=== PATIENT | male | born 1980 | race Caucasian/White ===

== ENCOUNTER 2016-12-08 19:42 | Observation (INO) ==
[2016-12-08] MEDS ORDERED: Ondansetron 4 MG/2 ML VIAL IVP ONE (20:26)
[2016-12-08] MEDS ORDERED: *HR* HYDROmorphone (PF) 1 MG/ML SYRINGE IVP ONE ×3 (20:26→23:11)
[2016-12-08] MEDS ORDERED: 0.9 % Sodium Chloride 1,000 ML IVC ONE ×2 (20:26→23:11)
[2016-12-08 21:21] LABS: Basophils # 0.1 K/mcL (0.0-0.2); Basophils % 0.7 %; Eosinophils # 0.1 K/mcL (0.0-0.6); Eosinophils % 0.3 %; Hematocrit 44.5 % (37.5-50.1); Hemoglobin 15.6 g/dL (12.9-16.9); Immature Granulocytes % 0.4 % (0-4); Lymphocytes # 1.4 K/mcL (0.6-4.6); Lymphocytes % 8.7 %; Mean Corpuscular HGB Conc 35.1 g/dL (31.6-35.5); Mean Corpuscular Hemoglobin 30.5 pg (28.0-33.3); Mean Corpuscular Volume 87.1 fL (83.0-100.0); Mean Platelet Volume 9.3 fL (9.4-12.4); Monocytes # 0.8 K/mcL (0.0-1.3); Monocytes % 4.9 %; Neutrophils # 13.4 K/mcL (1.6-8.9); Platelet Count 332 K/mcL (140-400); Red Blood Count 5.11 M/mcL (4.19-5.50); Red Cell Distribution Width 12.2 % (11.5-14.5)
--- NOTE | 2016-12-08 21:31 | Emergency Department Note ---
Disposition Clinical Impression: Acute cholecystitis due to biliary calculus, Right upper quadrant abdominal pain Nausea & vomiting Qualifiers: Vomiting type: unspecified Vomiting Intractability: non-intractable Qualified Code(s): R11.2 - Nausea with vomiting, unspecified Disposition: Admitted As Inpatient Condition: Fair Referrals: Torey Ingram CNP [Primary Care Provider] - Forms: ED Satisfaction Letter, Work/School Release Time of Disposition: 23:34 Abdominal Pain HPI - General Chief Complaint: ED Abdominal Pain Stated Complaint: "Abd Pain" Time Seen by Provider: 12/08/16 20:13 Source: patient Nursing Notes Reviewed: Yes Vital Signs Reviewed: Yes - History of Present Illness HPI Narrative: Patient he-year-old male complains of severe onset of right upper quadrant abdominal pain 8 hours ago. Patient states she has never had pain like this before. Patient states she still has appendix, gallbladder. Patient states she has never had kidney stones. Patient denies any dysuria. Patient states he he had pain and nausea before he ate. Pain Scale: 2 - Related Data Previous Rx's Medication Instructions Recorded Amoxicillin [Amoxil] 500 mg PO Q8HR #30 capsule 05/19/16 Guaifenesin/Dm/Pseudoephedrine 1 tab PO Q6HR PRN #30 tablet 05/19/16 [Capmist Dm Tablet] Allergies Allergy/AdvReac Type Severity Reaction Status Date / Time No Known Allergies Allergy Verified 12/08/16 19:44 Review of Systems: Vital Signs Temperature 97.6 F 12/08/16 19:45 Pulse Rate 55 12/08/16 19:45 Respiratory Rate 16 12/08/16 19:45 Blood Pressure 208/125 12/08/16 19:45 O2 Sat by Pulse Oximetry 99 12/08/16 19:45 Temperature 97.6 F 12/08/16 19:45 Pulse Rate 56 12/08/16 21:20 Respiratory Rate 22 12/08/16 21:20 Blood Pressure 175/111 12/08/16 21:20 O2 Sat by Pulse Oximetry 92 12/08/16 21:20 Oxygen Delivery Oxygen Delivery Room Air All systems ED: reviewed and negative except as stated. Review of Systems: As Per HPI Constitutional: Denies: fever, chills, weakness ENT ED: Denies: congestion Cardiovascular: Denies: chest pain, palpitations, dyspnea on exertion Respiratory: Denies: cough, dyspnea, hemoptysis Gastrointestinal: Reports: abdominal pain, nausea, vomiting. Denies: diarrhea Genitourinary: Denies: urgency, dysuria Musculoskeletal: Denies: back pain Integumentary: Denies: rash Neurological: Denies: headache Psychiatric: Denies: anxiety Endocrine: Denies: fatigue Abdominal Pain PMH - Past Medical History Medical history: Reports: kidney stones Male Surgical History: Reports: non-contributory Psychiatric history: Reports: no psych history - Social History Smoking status: Never smoker Alcohol use: Reports: none Drug use: Reports: none Physical Exam Vital Signs Temperature 97.6 F 12/08/16 19:45 Pulse Rate 55 12/08/16 19:45 Respiratory Rate 16 12/08/16 19:45 Blood Pressure 208/125 12/08/16 19:45 O2 Sat by Pulse Oximetry 99 12/08/16 19:45 Temperature 97.6 F 12/08/16 19:45 Pulse Rate 56 12/08/16 21:20 Respiratory Rate 22 12/08/16 21:20 Blood Pressure 175/111 12/08/16 21:20 O2 Sat by Pulse Oximetry 92 12/08/16 21:20 Oxygen Delivery Oxygen Delivery Room Air 36-year-old male who is alert and oriented 3. Patient does not appear to be in any distress at this time. Patient is nontoxic appearing. - General Limitations: no limitations General appearance: alert, in no apparent distress - Head Head exam: atraumatic, normocephalic, normal inspection - Eye Eye exam: Present: normal appearance, PERRL, EOMI - ENT ENT exam: normal exam, normal oropharynx, mucous membranes moist Course Vital Signs Temperature 97.6 F 12/08/16 19:45 Pulse Rate 55 12/08/16 19:45 Respiratory Rate 16 12/08/16 19:45 Blood Pressure 208/125 12/08/16 19:45 O2 Sat by Pulse Oximetry 99 12/08/16 19:45 Temperature 97.6 F 12/08/16 19:45 Pulse Rate 64 12/08/16 23:21 Respiratory Rate 22 12/08/16 23:21 Blood Pressure 182/116 12/08/16 23:21 O2 Sat by Pulse Oximetry 93 12/08/16 23:21 Oxygen Delivery Oxygen Delivery Room Air Abdominal Pain - MDM Narrative Medical decision making narrative: Patient with right upper quadrant pain concerning for possible cholecystitis, pancreatitis, choledocholithiasis. Patient received 2 L IV normal saline, 3 doses of 1 mg Dilaudid IV for pain. Each dose brings patient's pain down significantly, the patient's pain goes back up to a 7/10 about 45 minutes to an hour. Labs show elevated WBC at 15.7. Patient's symptoms of acute onset nausea, vomiting, right upper quadrant abdominal pain, CT scan results of an enlarged gallbladder with gallbladder wall thickening and pericholecystic fluid with visible stones in gallbladder, patient has acute cholecystitis. General surgery was consulted. Dr. roberts of general surgery has accepted patient to his service. Patient understands and agrees to treatment plan and accepts admission. Patient started on Zosyn 3.375 grams IV. Patient will continue to have pain control. IV hydration. Patient has been nothing by mouth during his stay in the ED. - Lab Data Lab results reviewed: Yes I reviewed the patient's lab results. Lab results narrative: Short CBC 12/08/16 Range/Units 20:46 WBC 15.7 H (4.3-11.1) K/mcL Hgb 15.6 (12.9-16.9) g/dL Hct 44.5 (37.5-50.1) % Plt Count 332 (140-400) K/mcL Neutrophils # 13.4 H (1.6-8.9) K/mcL BMP 12/08/16 Range/Units 20:46 Sodium 137 (136-145) mEq/L Potassium 3.4 L (3.5-4.5) mEq/L Chloride 97 L (98-109) mEq/L Carbon Dioxide 27 (19-29) mEq/L BUN 13 (8-26) mg/dL Creatinine 1.14 (0.72-1.25) mg/dL Glucose 108 H (70-99) mg/dL Calcium 10.1 (8.6-10.8) mg/dL Liver Function 12/08/16 Range/Units 20:46 Total Bilirubin 1.4 H (0.2-1.2) mg/dL Direct Bilirubin 0.5 (0.0-0.5) mg/dL AST 28 (5-34) Units/L ALT 35 (0-55) Units/L Alkaline Phosphatase 67 (38-126) Units/L Albumin 4.3 (3.5-5.0) g/dL Urine 12/08/16 Range/Units 22:23 Urine Color Yellow (Yellow) Urine Clarity Cloudy A (Clear) Urine pH 6.5 (5.0-8.0) pH Units Ur Specific Brook 1.016 (1.010-1.025) Urine Protein Negative (Neg-Trace) mg/dL Urine Glucose (UA) Normal (Normal) mg/dL Result diagrams: 12/08/16 20:46 12/08/16 20:46 Lab Results 12/08/16 12/08/16 12/08/16 Range/Units 20:46 20:46 22:23 WBC 15.7 H (4.3-11.1) K/mcL RBC 5.11 (4.19-5.50) M/mcL Hgb 15.6 (12.9-16.9) g/dL Hct 44.5 (37.5-50.1) % MCV 87.1 (83.0-100.0) fL MCH 30.5 (28.0-33.3) pg MCHC 35.1 (31.6-35.5) g/dL RDW 12.2 (11.5-14.5) % Plt Count 332 (140-400) K/mcL MPV 9.3 L (9.4-12.4) fL Immature Gran % 0.4 (0-4) % Seg Neutrophils % 85.0 % Lymphocytes % 8.7 % Monocytes % 4.9 % Eosinophils % 0.3 % Basophils % 0.7 % Neutrophils # 13.4 H (1.6-8.9) K/mcL Lymphocytes # 1.4 (0.6-4.6) K/mcL Monocytes # 0.8 (0.0-1.3) K/mcL Eosinophils # 0.1 (0.0-0.6) K/mcL Basophils # 0.1 (0.0-0.2) K/mcL Sodium 137 (136-145) mEq/L Potassium 3.4 L (3.5-4.5) mEq/L Chloride 97 L (98-109) mEq/L Carbon Dioxide 27 (19-29) mEq/L BUN 13 (8-26) mg/dL Creatinine 1.14 (0.72-1.25) mg/dL Est GFR ( Amer) > 60 (> 60) Est GFR (Non-Af Amer) > 60 (> 60) BUN/Creatinine Ratio 11 (6-26) Glucose 108 H (70-99) mg/dL Calculated Osmolality 285 (280-300) Calcium 10.1 (8.6-10.8) mg/dL Total Bilirubin 1.4 H (0.2-1.2) mg/dL Direct Bilirubin 0.5 (0.0-0.5) mg/dL Indirect Bilirubin 0.9 (0.0-1.2) mg/dL AST 28 (5-34) Units/L ALT 35 (0-55) Units/L Alkaline Phosphatase 67 (38-126) Units/L Serum Total Protein 7.7 (6.0-8.3) g/dL Albumin 4.3 (3.5-5.0) g/dL Globulin 3.4 (2.4-3.5) g/dL Albumin/Globulin Ratio 1.3 (1.1-2.2) Lipase 12 (8-78) Units/L Urine Color Yellow (Yellow) Urine Clarity Cloudy A (Clear) Urine pH 6.5 (5.0-8.0) pH Units Ur Specific [place] 1.016 (1.010-1.025) Urine Protein Negative (Neg-Trace) mg/dL Urine Glucose (UA) Normal (Normal) mg/dL Urine Ketones Negative (Negative) mg/dL Urine Blood Negative (Negative) Urine Nitrite Negative (Negative) Urine Bilirubin Negative (Negative) Urine Urobilinogen Normal (Normal) mg/dL Ur Leukocyte Esterase Negative (Negative) Urine Microscopic RBC 0-3 (0-3) per hpf Urine Microscopic WBC 0-3 (0-3) per hpf Ur Squamous Epith Cells None Seen (None-Few) per lpf Urine Bacteria None Seen (None-Few) per hpf Hyaline Casts None Seen (None-Few) per lpf Ur Culture Indicated? NO (NO) - Radiology Data Radiology results reviewed: Yes I reviewed the patient's radiology results. Chest X-Ray 12/08/16 20:14 IMPRESSION: No definite acute disease on this study obtained at low lung volumes. D/ / Francesco Sosa MD / Francesco Sosa MD Interpreting Provider: Francesco Sosa MD Abdomen/Pelvis CT 12/08/16 20:29 IMPRESSION: Cholelithiasis and acute cholecystitis. D/ / Chang Mc MD / Chang Mc MD Interpreting Provider: Chang Mc MD Attestation Statement - Attestation Attestation: I examined this patient and my medical decision-making was reviewed with the Resident Physician. I agree with the documented findings, disposition and treatment plan as described except to the extent set forth below. Findings of acute cholecystitis on CT. Discussed case with general surgery. We will start Zosyn and admitted to general surgery. No comorbidities. Vital signs stable to dominant admission.
[2016-12-08 21:39] LABS: Alanine Aminotransferase 35 Units/L (0-55); Albumin 4.3 g/dL (3.5-5.0); Albumin/Globulin Ratio 1.3 (1.1-2.2); Alkaline Phosphatase 67 Units/L (38-126); Aspartate Amino Transferase 28 Units/L (5-34); BUN/Creatinine Ratio 11 (6-26); Blood Urea Nitrogen 13 mg/dL (8-26); Calcium 10.1 mg/dL (8.6-10.8); Carbon Dioxide 27 mEq/L (19-29); Chloride 97 mEq/L (98-109); Globulin 3.4 g/dL (2.4-3.5); Glucose 108 mg/dL (70-99); Lipase 12 Units/L (8-78); Osmolality,Calculated 285 (280-300); Potassium 3.4 mEq/L (3.5-4.5); Sodium 137 mEq/L (136-145); Total Protein 7.7 g/dL (6.0-8.3); eGFR For African Americans > 60 (> 60); eGFR For Non-African Americans > 60 (> 60)
[2016-12-08 22:26] LABS: Bilirubin,Direct 0.5 mg/dL (0.0-0.5)
[2016-12-08 22:30] LABS: Bilirubin,Urine Negative (Negative); Blood,Urine Negative (Negative); Clarity,Urine Cloudy (Clear); Color,Urine Yellow (Yellow); Glucose,Urine (UA) Normal (Normal); Ketones,Urine Negative (Negative); Leukocyte Esterase,Urine Negative (Negative); Nitrite,Urine Negative (Negative); PH,Urine 6.5 pH Units (5.0-8.0); Protein,Urine Negative (Neg-Trace); Specific Gravity,Urine 1.016 (1.010-1.025); Urobilinogen,Urine Normal (Normal)
[2016-12-08 22:33] LABS: Bacteria,Urine None Seen per hpf (None-Few); Hyaline Casts,Urine None Seen per lpf (None-Few); RBC,Urine 0-3 per hpf (0-3); Squamous Epithelial Cell,Urine None Seen per lpf (None-Few); WBC,Urine 0-3 per hpf (0-3)
[2016-12-08 22:47] LABS: Bilirubin,Indirect 0.9 mg/dL (0.0-1.2); Bilirubin,Total 1.4 mg/dL (0.2-1.2)
[2016-12-08] MEDS ORDERED: Piperacillin/Tazobactam 3.375 GM in D5% in Water (Mini-Bag+) 100 ML IVPB ONE (23:17)
[2016-12-09] MEDS ORDERED: Ondansetron 4 MG/2 ML VIAL IVP PRN ×2 (00:39→14:27)
[2016-12-09] MEDS ORDERED: Ringers Solution, Lactated 1,000 ML IVC SCH ×2 (00:45→14:27)
[2016-12-09] MEDS: *HR* HYDROmorphone 2 MG/ML SYRINGE IVP PRN ×2 (01:13→07:29)
[2016-12-09] MEDS ORDERED: Piperacillin/Tazobactam 3.375 GM in D5% in Water (Mini-Bag+) 100 ML IVPB SCH (08:00)
[2016-12-09] MEDS ORDERED: Dexamethasone 4 MG/ML VIAL ONE (10:05)
[2016-12-09] MEDS ORDERED: Ondansetron 4 MG/2 ML VIAL ONE (10:05)
[2016-12-09] MEDS ORDERED: Lidocaine -MPF 2% 2 ML VIAL ONE (10:05)
[2016-12-09] MEDS ORDERED: *HR* Succinylcholine 200 MG/10 ML VIAL IVP ONE (10:05)
[2016-12-09] MEDS ORDERED: *HR* FentaNYL (PF) 100 MCG/2 ML VIAL ONE (10:05)
[2016-12-09] MEDS ORDERED: *HR* Propofol 200 MG/20 ML VIAL IVP ONE (10:05)
[2016-12-09] MEDS ORDERED: Acetaminophen 325 MG TABLET PO STA (10:11)
[2016-12-09] MEDS ORDERED: *HR* HYDROmorphone 2 MG/ML SYRINGE IVP PRN (10:12)
--- NOTE | 2016-12-09 10:15 | General Surg History&Physical ---
Date of Encounter: 12/09/16 Time of Encounter: 09:45 History of Present Illness Chief complaint: Acute right upper quadrant abdominal pain, cholecystitis, cholelithiasis HPI: Mr. Rand is a 36 year old male referred to surgical services after presenting to [facility] Emergency Department with acute onset right upper quadrant abdominal pain radiating around to the back since 12 noon yesterday. This was associated with a single episode emesis. The patient denies any fevers, chills, or jaundice. The patient has a history of kidney stones and initially attributed these symptoms to that diagnosis. The patient presented to [facility] ED in acute distress minimally responsive to administered narcotic analgesics. Laboratories are notable for a leukocytosis of 15.7 with 13.4% neutrophils. Potassium was borderline low at 3.4, other electrolytes, BUN , creatinine within normal limits. CT of the abdomen and pelvis showing cholelithiasis within a distended gallbladder. Trace pericholecystic fluid may be present. Incidental finding of small duodenal diverticulum is noted but there was no obvious nephro or ureterolithiasis, no hydronephrosis. Findings were consistent with possible acute cholecystitis, cholelithiasis, and biliary colic. Past medical history: Renal stones Surgical history: Tonsillectomy; kidney stone extraction 2 Allergies: Ragweed; no known drug allergies Medications: The patient is currently taking no medications at home Optional history: Patient is , he admits to using smokeless tobacco since the age of 12; he also consumes occasional alcohol described as holidays and an occasional sporting event. He denies any illicit drug use. Family history: Noncontributory Physical examination: Age-appropriate, well-developed well-nourished male in no acute distress. He continues to complain of right upper quadrant abdominal pain but no nausea or vomiting The patient has been afebrile since presentation to the emergency department , currently 98.5, pulse 70-82, respirations 14 and 18 and unlabored; blood pressure 174/100 likely due to the patient's persistent pain. The patient is 1.75 m tall, 99.8 kg, BMI 32.5 Skin: Warm, no obvious jaundice cardiac: Regular rate, no appreciable murmurs Lungs: Clear, no obvious abdominal pain with deep inspiration Abdomen: Nondistended, tender in the right upper quadrant with involuntary guarding. There is guarding prevents detection of any intra-abdominal masses. There was no rebound. All sounds active. Extremities: No obvious clubbing, cyanosis or edema Laboratories and CT were personally reviewed Impression: 36-year-old male with new onset right upper quadrant abdominal pain due to cholelithiasis. The patient remains symptomatic despite administration of narcotic analgesics. This is consistent with biliary colic related to the cholelithiasis. Acute cholecystitis was suspected but not definitively diagnosed. An ultrasound of the gallbladder has been ordered but yet to be completed. The patient's persisting symptoms have prompted me to arrange for surgical intervention rather than wait for the imaging. I discussed this with the patient and his who was in attendance. The patient is a reasonable candidate for laparoscopic cholecystectomy but understands an open cholecystectomy may become necessary. Risks of surgery include hemorrhage, infection, intra-abdominal abscess, bile leak, injury to adjacent ducts, vessels , organs, or bowel. Postcholecystectomy diarrhea is also possible and has been discussed. The patient has been nothing by mouth since admission. The patient and his have expressed understanding and wished to proceed with surgery. Consent has been obtained. Past Med Surg Social Fam HX - Past Medical History Medical history: kidney stones Psychiatric history: no psych history - Social History Smoking Status: Never smoker Smokeless Tobacco Status: No Alcohol use: none Drug use: none Medications and Allergies Amoxicillin [Amoxil] 500 mg PO Q8HR #30 capsule 05/19/16 [Rx] Guaifenesin/Dm/Pseudoephedrine [Capmist Dm Tablet] 1 tab PO Q6HR PRN #30 tablet 05/19/16 [Rx] 3 Allergy/AdvReac Type Severity Reaction Status Date / Time No Known Allergies Allergy Verified 12/08/16 19:44 Review of Systems All systems PM: A 10-system review of systems was performed and is negative for pertinent findings except as documented above in the HPI. General Surgery Exam Initial Vital Signs Temp Pulse Resp BP Pulse Ox 97.6 F 55 16 208/125 99 12/08/16 19:45 12/08/16 19:45 12/08/16 19:45 12/08/16 19:45 12/08/16 19:45 Results - Labs 12/08/16 20:46 12/08/16 20:46 Abnormal lab results WBC 15.7 K/mcL (4.3-11.1) H 12/08/16 20:46 MPV 9.3 fL (9.4-12.4) L 12/08/16 20:46 Neutrophils # 13.4 K/mcL (1.6-8.9) H 12/08/16 20:46 Potassium 3.4 mEq/L (3.5-4.5) L 12/08/16 20:46 Chloride 97 mEq/L (98-109) L 12/08/16 20:46 Glucose 108 mg/dL (70-99) H 12/08/16 20:46 Total Bilirubin 1.4 mg/dL (0.2-1.2) H 12/08/16 20:46 Urine Clarity Cloudy (Clear) A 12/08/16 22:23 All other labs normal.
[2016-12-09] MEDS ORDERED: Dexamethasone 4 MG/ML VIAL IVP ONE (11:07)
[2016-12-09] MEDS ORDERED: *HR* Midazolam HCl 2 MG/2 ML VIAL IVP PRN (11:07)
[2016-12-09] MEDS ORDERED: *HR* Labetalol 20 MG/4 ML SYRINGE IVP PRN (11:07)
[2016-12-09] MEDS ORDERED: Ondansetron 4 MG/2 ML VIAL IVP ONE (11:07)
[2016-12-09] MEDS ORDERED: Metoclopramide 10 MG/2 ML VIAL IVP ONE (11:07)
[2016-12-09] MEDS ORDERED: *HR* HYDROmorphone (PF) 1 MG/ML SYRINGE IVP PRN ×2 (11:07→14:27)
[2016-12-09] MEDS ORDERED: Ketorolac 30 MG/ML VIAL IVP ONE (11:07)
--- NOTE | 2016-12-09 11:07 | Anesthesia Evaluation PreOp ---
Date of Encounter: 12/09/16 Time of Encounter: 11:10 - Past History Planned Operation: lap al Cardiac History: Denies any Significant Hx Pulmonary History: Former smoker (smokeless tobacco, no recent smoking history) [employer] History: Denies Any Significant HX Other Medical History: Denies Any Significant HX Anesthesia History: No Prior Anesthetic Complications, Past Anesthesia Alcohol Use: none Drug use: none Medications and Allergies Amoxicillin [Amoxil] 500 mg PO Q8HR #30 capsule 05/19/16 [Rx] Guaifenesin/Dm/Pseudoephedrine [Capmist Dm Tablet] 1 tab PO Q6HR PRN #30 tablet 05/19/16 [Rx] 3 Allergy/AdvReac Type Severity Reaction Status Date / Time No Known Allergies Allergy Verified 12/08/16 19:44 - Meds/Allergy Pre-op Review Medications Reviewed: Yes Allergies Reviewed: Yes Beta Blockers on Current Med List: No Anesthesia Results - Labs 12/08/16 20:46 12/08/16 20:46 Anesthesia Exam Selected Entries 12/09/16 10:46 Temperature 98.8 F Pulse Rate 76 Respiratory Rate 14 Blood Pressure 162/111 O2 Sat by Pulse Oximetry 95 Weight: 99 kg - Cardiac Rhythm: Regular Murmur: None - Pulmonary Breath Sounds: bilateral Clear Respiratory Effort: Symmetrical Anesthesia Assess/Plan ASA Score: 2 Modified [place] Scale for Level of Consciousness: Cooperative, oriented, and tranquil Anesthetic Plan: General Monitoring Plan: Standard Monitors Recovery Plan: PACU
[2016-12-09] MEDS ORDERED: Bupivacaine/EPI 1:200k 0.25%PF 30 ML VIAL ONE (11:30)
[2016-12-09] MEDS ORDERED: ceFAZolin 2,000 MG in D5% in Water 100 ML IVPB ONE (12:00)
[2016-12-09] MEDS ORDERED: *HR* HYDROmorphone 2 MG/ML SYRINGE ONE (12:00)
--- NOTE | 2016-12-09 13:29 | Anesthesia Evaluation Post Op ---
Date of Encounter: 12/09/16 Time of Encounter: 13:51 - Vital Signs Vital Signs: Selected Entries 12/09/16 10:46 Temperature 98.8 F Pulse Rate 76 Respiratory Rate 14 O2 Sat by Pulse Oximetry 95 - Lungs Lungs: Clear Ascult./Percussion - Airway Airway: Non-obstructed - Cardiovascular Regular Rate - Mental Status Mental Status: Sedated - Nausea Vomiting Nausea Vomiting: Not Present - Hydration Hydration: Ice chips - Discharge PostOp Status: Transfer Patient to floor
[2016-12-09] MEDS ORDERED: Ringers Solution, Lactated 500 ML IVC ONE (13:47)
--- NOTE | 2016-12-09 14:04 | Operative Note ---
Date of procedure: 12/09/16 Pre-op diagnosis: cholecystitis, cholelithiasis, biliary colic Post-op diagnosis: other (acute cholecystitis with hydrops; cholelithiasis, biliary colic) Procedure: laparoscopic cholecystectomy, intra operative cholangiogram Complications: none apparent Anesthesia: GETA Local Anesthetics: 0.25% Sensorcaine HCL with Epinephrine 1:200,000 SubQ (cc) ( 30mL) Surgeon: Margarito Serrano Estimated blood loss (cc): 10 IV fluids (cc): 1,000 Specimen: gallbladder Condition: stable Disposition: PACU Procedure in Detail: The patient was brought to the operating room where he was placed supine upon the operating table. Operative consent had been obtained earlier. The patient was appropriately identified as to person and procedure. The accuracy of this information was confirmed by the patient and the procedure team. The patient was then intubated and anesthetized under the supervision of Dr. Karen Lanidn. When examined under anesthesia, the gallbladder was not palpable. The abdomen was prepped and draped in the usual sterile fashion. Several milliliters of 0.25% bupivacaine with 1-200,000 epinephrine was infiltrated into the infraumbilical skin. A small transverse incision was made, dissection was carried to the fascia. Additional bupivacaine with epinephrine was infiltrated into the fascia. The fascia was then grasped, elevated, and incised. An 11 mm Xcel was established without difficulty. The rigid laparoscope was placed within the obturator to visualize passage through the layers of the anterior abdominal wall. When the abdominal cavity was accessed, the obturator was replaced by the rigid laparoscope and the abdomen was insufflated with gaseous carbon dioxide. There was no obvious visible injury from establishing the port. Under direct visualization, 3 additional ports were placed along the right costal margin in the subxiphoid, midclavicular, and anterior axillary lines. Each site was infiltrated with the bupivacaine/ epinephrine solution. The gallbladder was tensely distended. There was no evidence of pericholecystic fluid. The gallbladder was aspirated of approximately 60 mL of a clear mucoid fluid consistent with hydrops. Such finding are consistent with acute cholecystitis with obstruction of the cystic duct. With aspiration, the gallbladder was sufficiently decompressed to facilitate retraction using endoscopic instruments. The hepatoduodenal ligament was then dissected using endoscopic [place] dissectors. The cystic duct was skeletonized and clipped near the infundibulum of the gallbladder. Via a separate percutaneous insertion site, a Taut cholangiogram catheter was introduced. The cystic duct was incised, the cholangiogram catheter inserted. Using C-arm fluoroscopy, a cholangiogram demonstrated a normal-appearing hepatobiliary tree with no filling defects. There was free flow of contrast into the duodenum. The proximal hepatobiliary tree demonstrated no significant abnormalities though the left hepatic duct filled incompletely due to rapid runoff of contrast into the duodenum. Dr. Gentile, [facility], provided an intra operative reading with no additional pathology described. The cholangiogram catheter was removed. The cystic duct was doubly clipped and divided. The cystic artery was identified, skeletonized, clipped twice proximally, clipped once distally, and divided. The gallbladder was dissected from the liver bed using Ethicon harmonic johnson. Once from the liver bed, the gallbladder was placed in an endoscopic pouch and removed via the infraumbilical opening. It was necessary to enlarge the infraumbilical opening to allow extraction of the enlarged gallbladder containing multiple stones. The specimen was recovered and sent to pathology. The liver bed was inspected for adequate hemostasis. Ursula was topically applied to the liver bed to complete hemostasis. A visual inspection of the abdomen demonstrated no other obvious abnormalities. The pneumoperitoneum was evacuated. The instrumentation removed. The fascia of the infra umbilical opening was closed with interrupted [id number] 0 Vicryl using S retractors. Additional bupivacaine with epinephrine was infiltrated into the fascia. The skin edges of the port sites were approximated with subcuticular 4-0 Vicryl. The incisions were then sealed with Dermabond dermal adhesive. The patient was taken to recovery in stable condition. Needle, sponge, and instrument counts were correct at the close of the case. Total volume of 0.25% bupivacaine with 1 -200,000 units epinephrine used during this procedure, 30 mL.
[2016-12-09] MEDS ORDERED: *HR* OxyCODONE/APAP 5/325 TABLET PO PRN (14:27)
[2016-12-09] MEDS ORDERED: Acetaminophen 325 MG TABLET PO PRN (14:27)
[2016-12-10 10:29] VITALS: BP 142/93
--- NOTE | 2016-12-10 11:59 | General Surgery Progress Note ---
Date of Encounter: 12/10/16 Time of Encounter: 11:56 Subjective Patient reports: feels better, pain is less, tolerating a regular diet Narrative: General Surgery - POD #1 Patient feeling much improved, pain almost completely resolved. Tolerating regular diet, no nausea vomiting Afebrile, currently 98.3, pulse 96, respiratory rate 18 and unlabored blood pressure 142/93 Lungs: Clear, no abdominal pain with deep inspiration Abdomen: Infra-umbilical tenderness as expected related to the infraumbilical port site through which the gallbladder was extracted. This site was enlarged due to the acutely inflamed gallbladder and multiple stones. All port sites clean and dry and healing nicely. Impression: Acute calculous cholecystitis with hydrops Status post laparoscopic cholecystectomy with intraoperative cholangiogram Acceptable postoperative status Plan: Discharge home Outpatient follow-up, 12/14/16. Instructions: Regular diet Patient may shower, wash incisions with soap and water Activity as tolerated, lifting to less than 20 pounds Tylenol, ibuprofen, Motrin, Nay, Aleve, etc. as needed for pain Prescription for Percocet 5/325 #12, one every 6 hours as needed for pain not relieved by [id number] medications. Objective Vital Signs - Last 8 Hours Temp Pulse Resp BP Pulse Ox 12/10/16 10:21 98.3 F 96 18 142/93 93 12/10/16 06:24 98.9 F 96 18 148/83 92 Intake and Output 12/09/16 12/10/16 12/10/16 23:59 07:59 15:59 Intake Total 120 / 120 0 / 0 0 / 0 Output Total 300 / 300 500 / 500 1000 / 1000 Balance -180 / -180 -500 / -500 -1000 / -1000 Intake: Oral 120 / 120 0 / 0 0 / 0 Output: Urine 300 / 300 500 / 500 1000 / 1000 Other: Meal Dinner Percent of Meal Consumed 50% Weight 99.82 kg Patient Weight 12/10/16 23:59 Weight 99.82 kg - Labs 12/08/16 20:46 12/08/16 20:46 - VTE Documentation of Mechanical Device: Intermittent pneumatic compression device Consult Discharge Plan - Plan Referrals: Torey Ingram, REFINING EQUIPMENT OPERATOR [Primary Care Provider] -
--- NOTE | 2016-12-10 12:05 | Discharge Summary ---
Outpatient Proc Discharge Plan - Plan Additional Instructions: Regular diet Activity as tolerated, LIFTING LIMITED TO LESS THAN 20# Patient may shower, wash incisions with soap and water Follow-up my office, 12/14/16 Tylenol, ibuprofen, Motrin, Advil, Aleve, etc. as needed for pain Percocet 5/325, #12, one every 6 hours as needed for pain not relieved by over- the-counter medications Prescriptions: OxyCODONE/APAP 5/325 [Percocet 5/325 MG] 1 each PO Q6H PRN #12 tablet PRN Reason: Pain Home Medications: Acetaminophen [Tylenol] 650 mg PO Q6H PRN tablet 12/10/16 [Rx] OxyCODONE/APAP 5/325 [Percocet 5/325 MG] 1 each PO Q6H PRN #12 tablet 12/10/16 [ Rx]
[2016-12-10] MEDS ORDERED: FLUARIX QUAD 2017-18 36MOS UP/PF 0.5 ML SYRINGE IM ONE (13:19)
== END 2016-12-10 15:20 | disposition home or self-care (01) ==
LOC: EMEROO 19:42 → INTOOBSV 23:30 → 3ANU 23:30
PROVIDERS: ADMIT Surgery; ATTEND Surgery